=== PATIENT | female | born 1985 | race Caucasian/White ===

== ENCOUNTER 2017-02-27 17:20 | Emergency (ER) | payer MEDICAID, OTHER ==
[~2017-02-27] VITALS: Ht 160 cm; Wt 52.2 kg
[~2017-02-27 17:20] MED LIST: KEFLEX500 MG ORAL; VIMPAT100 MG PO
--- NOTE | 2017-02-27 17:49 | Emergency Room Report ---
History of Present Illness General Chief Complaint: Seizure Source: Patient, EMS Present Illness HPI The patient is a 31-year-old female with a history of seizure disorder presenting for possible seizure. The patient states that she was seated on her bed when she felt onset of seizure and is unsure of how long she was unconscious. She states that she is to take clonazepam for seizures and then had VNS implants 1 month prior and has been seizure free. She does not take any more medications for seizure. She denies any other medical problems. She denies any pain at this time. She does state that she has not been eating or drinking well over the past few days. She denies any other symptoms Allergies: Coded Allergies: No Known Allergies (Unverified , 03/31/14) Patient History Past Medical History: see triage record Pertinent Family History: none Reviewed Nursing Documentation: PMH: Agreed, PSxH: Agreed Nursing Documentation-PMH Past Medical History: No History, Except For Hx Neurological Problems: Yes - SEIZURE Hx Seizures: Yes Review of Systems All Other Systems: negative except mentioned in HPI Physical Exam Vital Signs Date Time Temp Pulse Resp B/P (MAP) Pulse Ox O2 Delivery O2 Flow Rate FiO2 02/27/17 17:13 98.2 126 18 150/70 99 Room Air Sp02 EP Interpretation: reviewed, normal General Appearance: no apparent distress, alert, GCS 15, non-toxic Head: normocephalic, atraumatic Eyes: bilateral eye normal inspection, bilateral eye PERRL ENT: hearing grossly normal, normal pharynx, no angioedema, normal voice Neck: full range of motion, supple/symm/no masses Respiratory: chest non-tender, lungs clear, normal breath sounds, speaking full sentences, other - VSD in L upper chest Cardiovascular #1: regular rate, rhythm, no edema Gastrointestinal: normal bowel sounds, non tender, soft, non-distended, no guarding, no rebound Genitourinary: normal inspection, no CVA tenderness Musculoskeletal: back normal, gait/station normal, normal range of motion, non- tender Neurologic: alert, oriented x3, responsive, motor strength/tone normal, sensory intact, speech normal Psychiatric: judgement/insight normal, memory normal, mood/affect normal, no suicidal/homicidal ideation Skin: normal color, no rash, warm/dry, well hydrated Lymphatic: no adenopathy Medical Decision Making PA Attestation Dr. Hicks is my supervising physician. Patient management was discussed with my supervising physician Diagnostic Impression: Primary Impression: Seizure disorder ER Course The patient is a 31-year-old female with a history of seizure disorder presenting for possible seizure DDx considered but not limited to: seizure disorder, implanted device failure, drug use, psychosis, among others PE: vitals are stable. NAD Head is NC/AT. No ecchymosis. No edema. PERRL A&Ox3 Neck is soft and supple. Non tender. L chest has VSD. RRR Labs: Remarkable for leukocytosis. No electrolyte abnormality. The patient is given time to rest in the ED and is monitored for seizure activity. The patient has experienced another seizure while in the ED. She is given ativan and will be admitted to the hospital. Once the patient is again alert and oriented, she has declined admission and will sign out AMA. She understands the risks associated with this. She is given Keppra and needs to FU with PMD and neurology. DMV form is filled out. ER precautions given Laboratory Tests Test 02/27/17 19:11 White Blood Count 14.5 K/UL (4.8-10.8) H Red Blood Count 4.28 M/UL (4.20-5.40) Hemoglobin 11.9 G/DL (12.0-16.0) L Hematocrit 37.4 % (37.0-47.0) Mean Corpuscular Volume 87 FL (80-99) Mean Corpuscular Hemoglobin 27.9 PG (27.0-31.0) Mean Corpuscular Hemoglobin Concent 31.9 G/DL (32.0-36.0) L Red Cell Distribution Width 12.6 % (11.6-14.8) Platelet Count 236 K/UL (150-450) Mean Platelet Volume 6.8 FL (6.5-10.1) Neutrophils (%) (Auto) 90.3 % (45.0-75.0) H Lymphocytes (%) (Auto) 5.3 % (20.0-45.0) L Monocytes (%) (Auto) 3.8 % (1.0-10.0) Eosinophils (%) (Auto) 0.0 % (0.0-3.0) Basophils (%) (Auto) 0.6 % (0.0-2.0) Urine Color Pale yellow Urine Appearance Slightly cloudy Urine pH 6 (4.5-8.0) Urine Specific [place] 1.020 (1.005-1.035) Urine Protein 1+ (NEGATIVE) H Urine Glucose (UA) Negative (NEGATIVE) Urine Ketones 1+ (NEGATIVE) H Urine Occult Blood 1+ (NEGATIVE) H Urine Nitrite Negative (NEGATIVE) Urine Bilirubin Negative (NEGATIVE) Urine Urobilinogen Normal MG/DL (0.0-1.0) Urine Leukocyte Esterase Negative (NEGATIVE) Urine RBC 2-4 /HPF (0 - 2) H Urine WBC 0-2 /HPF (0 - 2) Urine Squamous Epithelial Cells Few /LPF (NONE/OCC) Urine Amorphous Sediment Few /LPF (NONE) H Urine Bacteria Occasional /HPF (NONE) Urine HCG, Qualitative Negative Sodium Level 135 MMOL/L (136-145) L Potassium Level 3.7 MMOL/L (3.5-5.1) Chloride Level 102 MMOL/L (98-107) Carbon Dioxide Level 24 MMOL/L (21-32) Anion Gap 9 (5-15) Blood Urea Nitrogen 12 mg/dL (7-18) Creatinine 1.0 MG/DL (0.55-1.30) Estimate Glomerular Filtration Rate > 60 mL/min (>60) Glucose Level 105 MG/DL (74-106) Calcium Level 8.2 MG/DL (8.5-10.1) L Total Bilirubin 0.3 MG/DL (0.2-1.0) Aspartate Amino Transferase (AST) 28 U/L (15-37) Alanine Aminotransferase (ALT) 29 U/L (12-78) Alkaline Phosphatase 48 U/L (46-116) Total Protein 6.4 G/DL (6.4-8.2) Albumin 3.8 G/DL (3.4-5.0) Globulin 2.6 g/dL Albumin/Globulin Ratio 1.5 (1.0-2.7) Urine Opiates Screen Negative (NEGATIVE) Urine Barbiturates Screen Negative (NEGATIVE) Phencyclidine (PCP) Screen Negative (NEGATIVE) Urine Amphetamines Screen Negative (NEGATIVE) Urine Benzodiazepines Screen Negative (NEGATIVE) Urine Cocaine Screen Negative (NEGATIVE) Urine Marijuana (THC) Screen Negative (NEGATIVE) Lab Results Impression Leukocytosis. Otherwise unremarkable Chest X-Ray Diagnostic Results Chest X-Ray Diagnostic Results : Chest X-Ray Ordered: Yes # of Views/Limited/Complete: 1 View Indication: Other - syncope EP Interpretation: Yes Interpretation: no consolidation, no effusion, no pneumothorax, no acute cardiopulmonary disease Impression: No acute disease Electronically Signed by: PHILLIP Bhatia Scribjeffrey Text I have reviewed the CXR with my SP. No acute findings. Last Vital Signs Date Time Temp Pulse Resp B/P (MAP) Pulse Ox O2 Delivery O2 Flow Rate FiO2 02/27/17 17:13 98.2 126 18 150/70 99 Room Air Status: improved Disposition: AGAINST MEDICAL ADVICE Condition: Serious Scripts Levetiracetam (KEPPRA) 500 Mg Tablet 500 MG ORAL EVERY 12 HOURS, #60 TAB 0 Refills Prov: DELVIN JOHNSON 02/27/17 DELVIN JOHNSON Feb 27, 2017 17:49
[2017-02-27] MEDS ORDERED: LORazepam Inj 2mg/ml 1ml ONE (18:28)
[2017-02-27] MEDS ORDERED: LORazepam Inj 2mg/ml 1ml IV ONE (18:30)
[2017-02-27 19:35] LABS: MEAN CORPUSCULAR HEMOGLOBIN 27.9 PG (27.0-31.0); MEAN CORPUSCULAR HGB CONC 31.9 G/DL (32.0-36.0); MEAN CORPUSCULAR VOLUME 87 FL (80-99); MEAN PLATELET VOLUME 6.8 FL (6.5-10.1); PLATELET COUNT 236 K/UL (150-450); RED BLOOD COUNT 4.28 M/UL (4.20-5.40); RED CELL DISTRIBUTION WIDTH 12.6 % (11.6-14.8); WHITE BLOOD COUNT 14.5 K/UL (4.8-10.8)
[2017-02-27 19:37] LABS: APPEARANCE,URINE SLIGHTLY CLOUDY; KETONES,URINE 1+ (NEGATIVE); LEUKOCYTE ESTERASE ,URINE NEGATIVE (NEGATIVE); NITRITE,URINE NEGATIVE (NEGATIVE); PH,URINE 6 (4.5-8.0); PROTEIN,URINE 1+ (NEGATIVE); UROBILINOGEN,URINE NORMAL MG/DL (0.0-1.0)
[2017-02-27 19:38] LABS: BASOPHILS % (AUTO) 0.6 % (0.0-2.0); LYMPHOCYTES % (AUTO) 5.3 % (20.0-45.0); MONOCYTES % (AUTO) 3.8 % (1.0-10.0); NEUTROPHILS % (AUTO) 90.3 % (45.0-75.0)
[2017-02-27 19:44] LABS: AMORPHOUS SEDIMENT,UR FEW /LPF; BACTERIA,URINE OCCASIONAL /HPF; SQUAMOUS EPITHELIAL CELL,UR FEW /LPF (NONE/OCC); WBC,URINE 0-2 /HPF (0 - 2)
[2017-02-27 19:49] LABS: ALANINE AMINOTRANSFERASE 29 U/L (12-78); ALBUMIN/GLOBULIN RATIO 1.5 (1.0-2.7); ANION GAP 9 (5-15); ASPARTATE AMINO TRANSFERASE 28 U/L (15-37); CALCIUM 8.2 MG/DL (8.5-10.1); CARBON DIOXIDE 24 MMOL/L (21-32); CHLORIDE 102 MMOL/L (98-107); GLOMERULAR FILTRATION RATE > 60 mL/min (>60); POTASSIUM 3.7 MMOL/L (3.5-5.1); SODIUM 135 MMOL/L (136-145); TOTAL PROTEIN 6.4 G/DL (6.4-8.2)
[2017-02-27 20:00] VITALS: BP 94/53
[2017-02-27 21:28] VITALS: BP 88/49
[2017-02-27] MEDS ORDERED: KEPPRA500 M4 ORAL (21:36)
[2017-02-27 22:35] VITALS: BP 99/60
--- NOTE | 2017-02-28 09:39 | Diagnostic Imaging Report ---
Indication: PAIN Comparison: None Findings: Single view of the chest shows a normal cardiomediastinal silhouette. Pulmonary vasculature is normal. Lung are clear. Soft tissues and osseous structures are within normal limits. Stimulator leads with battery pack is noted in the left chest. Portion of a screw is seen overlying the right humeral head. Impression: No acute chest disease Prior surgery.
== END 2017-02-27 22:35 | disposition left against medical advice (07) ==
LOC: EDBD 17:20 → EMR 18:35 → CANBEDREQ 21:34 → EMR 22:35
DX: G40.909 Epilepsy, unspecified, not intractable, without status epilepticus (principal)
CPT/HCPCS: 36415; 71010; 80053; 80300; 81003; 81025; 85025; 96361; 96374; 99284

== ENCOUNTER 2017-03-26 15:03 | Emergency (ER) | payer MEDICAID, OTHER ==
[~2017-03-26] VITALS: Ht 162.6 cm; Wt 49.9 kg
[~2017-03-26 15:03] MED LIST changes: +KEPPRA500 M4 ORAL
[2017-03-26 15:29] VITALS: BP 120/78
[2017-03-26 15:32] VITALS: BP 120/78
--- NOTE | 2017-03-26 19:30 | Emergency Room Report ---
History of Present Illness General Chief Complaint: Seizure Source: Medical Record, EMS Present Illness HPI 31-year-old female presents ED for evaluation. Patient had a seizure witnessed. No reported head trauma. Patient noted to have an implant in her chest to control the seizures. Is currently not on any seizure medications. At this time patient states she feels okay. Does not want to be here. Denies alcohol or drug use. No other aggravating or relieving factors. Denies any other associated symptoms Allergies: Coded Allergies: No Known Allergies (Unverified , 03/31/14) Patient History Past Medical History: seizures Past Surgical History: none Pertinent Family History: none Social History: Denies: smoking, alcohol use, drug use Now: No Immunizations: UTD Reviewed Nursing Documentation: PMH: Agreed, PSxH: Agreed Nursing Documentation-PMH Past Medical History: No History, Except For Hx Neurological Problems: Yes - SEIZURE Hx Seizures: Yes Review of Systems All Other Systems: negative except mentioned in HPI Physical Exam Vital Signs Date Time Temp Pulse Resp B/P (MAP) Pulse Ox O2 Delivery O2 Flow Rate FiO2 03/26/17 14:59 97.5 106 16 120/78 99 Room Air General Appearance: other - patient refused physical exam Medical Decision Making Diagnostic Impression: Primary Impression: Seizure disorder ER Course Hospital Course 31-year-old F presents to ED status post seizure. Differential diagnosis includes- breakthrough seizure, alcohol abuse, noncompliance with medication Clinical course Patient placed in stretcher. Upon initial history patient refuses to provide any additional information. States that she wants to leave. Does not want evaluation. Refusing physical Under the circumstances the patient leaves she has leave AGAINST MEDICAL ADVICE Patient states she wishes to go home. Understands the risks of leaving. Patient has competency to make her own decisions. Signed AMA form. Patient allowed to rest is now awake alert oriented x3. ambulating without difficulty. Family is at bedside and can take patient home. Diagnosis - seizure patient leaves AMA Last Vital Signs Date Time Temp Pulse Resp B/P (MAP) Pulse Ox O2 Delivery O2 Flow Rate FiO2 03/26/17 15:32 97.5 101 16 120/78 99 Room Air Status: improved Disposition: AGAINST MEDICAL ADVICE Condition: Stable Referrals: [facility]URIC[facility] (PCP) DYANA ADAMS M.D. Mar 26, 2017 19:30
== END 2017-03-26 15:33 | disposition left against medical advice (07) ==
LOC: EDBD 15:03 → EMR 15:16
DX: G40.909 Epilepsy, unspecified, not intractable, without status epilepticus (principal)
CPT/HCPCS: 99283

== ENCOUNTER 2017-06-17 16:21 | Emergency (ER) | payer MEDICAID, OTHER ==
[~2017-06-17] VITALS: Ht 160 cm; Wt 43.1 kg
[2017-06-17] MEDS ORDERED: LORazepam Inj 2mg/ml 1ml IV ONE (16:30)
[2017-06-17] MEDS ORDERED: levETIRAcetam 500 MG in D5W 110 ML IV ONE (16:30)
[2017-06-17 16:52] VITALS: BP 118/65
[2017-06-17 16:53] VITALS: BP 118/65
--- NOTE | 2017-06-17 16:57 | Emergency Room Report ---
History of Present Illness General Chief Complaint: Seizure Source: Patient, EMS Present Illness HPI Patient had a seizure that lasted 5 minutes according to bystanders. Paramedics were unable to get history from patient. She was postictal and gradually coming around. They found drug paraphernalia with the patient mainly a crack or crystal-type pipe. When more alert, the patient states that she has seizures and takes clonazepam occasionally. She is on no other medication/s to prevent seizures. Last seizures a month ago. She denies suicidal or homicidal ideation. No fevers, cough, dyspnea, chest pain, NVD, dysuria. States not . Allergies: Coded Allergies: No Known Allergies (Unverified , 03/31/14) Patient History Past Medical History: see triage record Social History: Reports: drug use Social History Narrative lives with boyfriend Last Menstrual Period: UNK Reviewed Nursing Documentation: PMH: Agreed, PSxH: Agreed Nursing Documentation-PMH Past Medical History: Deferred Hx Neurological Problems: Yes - SEIZURE Hx Seizures: Yes Review of Systems All Other Systems: negative except mentioned in HPI Physical Exam Vital Signs Date Time Temp Pulse Resp B/P (MAP) Pulse Ox O2 Delivery O2 Flow Rate FiO2 06/17/17 16:22 106 18 110/80 99 Room Air Feels afebrile Sp02 EP Interpretation: reviewed, normal General Appearance: well appearing, no apparent distress, GCS 15, thin Head: normocephalic, atraumatic Eyes: bilateral eye normal inspection, bilateral eye PERRL, bilateral eye EOMI ENT: moist mucus membranes Neck: supple, other - wire like structure subcutaneously L anterior neck Respiratory: lungs clear, normal breath sounds Cardiovascular #1: regular rate, rhythm Cardiovascular #2: 2+ radial (R) Gastrointestinal: normal inspection, normal bowel sounds, non tender, no mass, non-distended Musculoskeletal: back normal, gait/station normal, normal range of motion Neurologic: alert, oriented x3, senior power scheduler III-XII nml as tested, motor strength/tone normal, DTRs symmetric, sensory intact, cerebellar normal, normal gait, speech normal Psychiatric: no suicidal/homicidal ideation, other - argumentative, poor insight Skin: normal inspection, warm/dry Medical Decision Making Diagnostic Impression: Primary Impression: Seizure Additional Impressions: Presmed drug abuse AMA ER Course Patient presents with a seizure. Differential includes noncompliance, breakthrough seizure, electrolyte imbalance, other drug ingestion growing seizure threshold amongst others. Evaluation will be with chest x-ray labs. Patient be treated with Ativan, Keppra and cardiac observation. The patient is refusing care. She's alert and oriented. There is refusing care because "I know my body better than anyone else". I've explained the risk of having a seizure where she can't protect herself. She says refusing care at this time. She denies suicidal or homicidal ideation. Rhythm Strip Diag. Results EP Interpretation: yes Rhythm: NSR, no PVC's, no ectopy Status: improved Disposition: AGAINST MEDICAL ADVICE Condition: Unknown Conraod Trotter M.D. Jun 17, 2017 16:57
== END 2017-06-17 16:53 | disposition left against medical advice (07) ==
LOC: EDBD 16:21 → EDUNIT# 16:21 → EMR 16:50
DX: G40.909 Epilepsy, unspecified, not intractable, without status epilepticus (principal); Z91.19 Patient's noncompliance with other medical treatment and regimen; F19.10 Other psychoactive substance abuse, uncomplicated
CPT/HCPCS: 99282

== ENCOUNTER 2017-11-22 16:35 | Emergency (ER) | payer MEDICAID, OTHER ==
[~2017-11-22] VITALS: Ht 167.6 cm; Wt 54.4 kg
--- NOTE | 2017-11-22 16:36 | Emergency Room Report ---
History of Present Illness General Chief Complaint: Seizure Source: Patient, Significant Other, EMS Present Illness HPI Patient is a 32-year-old female. Patient has known history of seizure disorder. The patient had been the started on Keppra. As she normally takes Keppra 1 time a day at bedtime. Is having more frequent seizures during her menses. The patient reported not taking her medications last night. The patient had reportedly had 2 seizures today. Patient initially declined transport after the first seizure.The patient's seizure was generalized tonic-clonic. She denies any injuries. Allergies: Coded Allergies: No Known Allergies (Unverified , 03/31/14) Patient History Past Medical History: see triage record Reviewed Nursing Documentation: PMH: Agreed; PSxH: Agreed Nursing Documentation-PMH Past Medical History: No History, Except For Hx Neurological Problems: Yes - seizure Review of Systems All Other Systems: negative except mentioned in HPI Physical Exam Vital Signs Date Time Temp Pulse Resp B/P (MAP) Pulse Ox O2 Delivery O2 Flow Rate FiO2 11/22/17 16:26 99.2 103 18 109/69 98 Room Air 99.1 Sp02 EP Interpretation: reviewed, normal General Appearance: normal inspection, well appearing, no apparent distress, alert, GCS 15 Head: atraumatic ENT: normal ENT inspection, hearing grossly normal, normal voice Neck: normal inspection, full range of motion, supple, no bony tend, other - implant Respiratory: normal inspection, lungs clear, normal breath sounds, no respiratory distress, no retraction, no wheezing Cardiovascular #1: regular rate, rhythm, no edema Gastrointestinal: normal inspection, normal bowel sounds, non tender, soft, no guarding, no hernia Genitourinary: no CVA tenderness Musculoskeletal: normal inspection, back normal, normal range of motion Neurologic: normal inspection, alert, oriented x3, responsive, cadet deck III-XII nml as tested, speech normal Psychiatric: normal inspection, judgement/insight normal, mood/affect normal Skin: normal inspection, normal color, no rash Medical Decision Making Diagnostic Impression: Primary Impression: Seizure Additional Impressions: Seizure disorder Nonadherence to medication First degree burn ER Course Present for seizure. Differential diagnosis included cysticercosis, electrolyte abnormality, mass lesion, or cranial hemorrhage.Because of complexity of patient's case laboratory testing and imaging studies were ordered. The patient refused IV Keppra. She was able to take her own medications while in the emergency department. Patient was given IV fluids. The patient is advised to follow up with neurology in 1-2 days. Patient is advised to return if any worsening condition or if any changes in status that are concerning. This report is dictated with [email or web address] manpower development manager software which may occasionally lead to discrepancies related to use of this software. Last Vital Signs Date Time Temp Pulse Resp B/P (MAP) Pulse Ox O2 Delivery O2 Flow Rate FiO2 11/22/17 16:26 99.2 103 18 109/69 98 Room Air 99.1 Status: improved Disposition: HOME, SELF-CARE Condition: Stable Scripts Silver Sulfadiazine (SILVADENE) 20 Gm Cream..g. 20 GM TP DAILY, #100 GM Prov: Orlando Thompson MD 11/22/17 Orlando Thompson MD Nov 22, 2017 16:36
[2017-11-22 16:45] VITALS: BP 109/69
[2017-11-22] MEDS ORDERED: SILVADENE20 GM TP (17:55)
[2017-11-22 18:00] VITALS: BP 112/72
== END 2017-11-22 18:00 | disposition home or self-care (01) ==
LOC: EDBD 16:35 → EMR 17:10
DX: G40.909 Epilepsy, unspecified, not intractable, without status epilepticus (principal); Z91.19 Patient's noncompliance with other medical treatment and regimen; T30.0 Burn of unspecified body region, unspecified degree; X08.8XXA Exposure to other specified smoke, fire and flames, initial encounter; Y92.9 Unspecified place or not applicable
CPT/HCPCS: 99283